=== PATIENT | female | born 1965 ===

== ENCOUNTER 2018-01-12 09:42 | Observation (INO) | payer OTHER ==
[2018-01-12] MEDS ORDERED: Aspirin 325 mg EC Tablets PO STA (10:08)
[2018-01-12 10:30] LABS: BASO # 0.1 K/uL (0.0-0.2); BASO % 0.8 % (0.0-2.0); EOS # 0.1 K/uL (0.0-0.7); EOS % 1.2 % (0.0-4.0); HEMOGLOBIN 14.8 g/dL (11.0-16.0); LYMPH # 1.8 K/uL (1.0-4.3); LYMPH % 19.4 % (20.0-40.0); MEAN CORPUSCULAR HEMOGLOBIN 30.9 pg (27.0-31.0); MEAN CORPUSCULAR HGB CONC 34.7 g/dL (33.0-37.0); MEAN PLATELET VOLUME 8.1 fL (7.2-11.7); MONO # 0.7 K/uL (0.0-0.8); MONO % 7.6 % (0.0-10.0); NEUT # 6.5 K/uL (1.8-7.0); NRBC % 0.1 % (0.0-2.0); RBC 4.79 Mil/uL (3.80-5.20); RED CELL DISTRIBUTION WIDTH 13.3 % (11.5-14.5); WHITE BLOOD COUNT 9.1 K/uL (4.8-10.8)
[2018-01-12 10:44] LABS: ALB/GLOB RATIO 1.1 (1.0-2.1); ALBUMIN 4.6 g/dL (3.5-5.0); CALCIUM 9.6 mg/dl (8.6-10.4); GFR AFRICAN-AMERICAN > 60; GFR NON-AFRICAN AMERICAN > 60
[2018-01-12 10:55] LABS: ALT/SGPT 20 U/L (9-52); AST/SGOT 34 U/L (14-36); BLOOD UREA NITROGEN 16 mg/dL (7-17)
--- NOTE | 2018-01-12 11:01 | C.PDOC ---
History Of Present Illness 52 year old female, with PMHx of HTN, presents to ED for evaluation of intermittent chest pain for the past 3 weeks and progressive shortness of breath. Pt reports being seen by her staff scientist, Dr. Portillo, 2 days ago, had an echocardiogram done with abnormal results and was recommended to have stress test scheduled. Pt states her symptoms continue which prompted her to visit the ED today. Denies history of PE/DVT. Notes she quit smoking 20 years ago. Denies cough, fever, or other complaints at this time. Time Seen by Provider: 01/12/18 10:07 Chief Complaint (Nursing): Chest Pain History Per: Patient History/Exam Limitations: no limitations Onset/Duration Of Symptoms: Days Current Symptoms Are (Timing): Still Present Quality: "Pain" Associated Symptoms: denies: Nausea, Diaphoresis, Syncope Modifying Factors: None Exacerbating Factors: None Alleviating Factors: None Recent travel outside of the [place]: No Additional History Per: Patient Past Medical History Reviewed: Historical Data, Nursing Documentation, Vital Signs Vital Signs: Last Vital Signs Temp 98.5 F 01/12/18 09:48 Pulse 63 01/12/18 10:31 Resp 18 01/12/18 09:48 BP 119/72 01/12/18 10:31 Pulse Ox 97 01/12/18 11:15 - Medical History PMH: HTN Family History: States: Unknown Family Hx - Social History Hx Alcohol Use: No Hx Substance Use: No - Immunization History Hx Tetanus Toxoid Vaccination: No Hx Influenza Vaccination: No Hx Pneumococcal Vaccination: No Review Of Systems Except As Marked, All Systems Reviewed And Found Negative. Constitutional: Negative for: Fever, Chills Cardiovascular: Positive for: Chest Pain. Negative for: Light Headedness Respiratory: Positive for: Shortness of Breath. Negative for: Cough Gastrointestinal: Negative for: Nausea, Vomiting Physical Exam - Physical Exam Appears: Non-toxic, No Acute Distress Skin: Normal Color, Warm, Dry Head: Atraumatic, Normacephalic Eye(s): bilateral: Normal Inspection Oral Mucosa: Moist Chest: Symmetrical Cardiovascular: Rhythm Regular, No Murmur Respiratory: Normal Breath Sounds, No Rales, No Rhonchi, No Wheezing Gastrointestinal/Abdominal: Soft, No Tenderness Extremity: Normal ROM, No Pedal Edema Neurological/Psych: Oriented x3, Normal Speech ED Course And Treatment - Laboratory Results Result Diagrams: 01/12/18 10:26 01/12/18 10:26 ECG: Interpreted By Me, Viewed By Me ECG Rhythm: Sinus Rhythm ECG Interpretation: No Acute Changes Interpretation Of ECG: Normal intervals, normal axis. No ST/T wave abnormality. Rate From EC (bpm) O2 Sat by Pulse Oximetry: 97 (RA) Pulse Ox Interpretation: Normal Medical Decision Making Medical Decision Making: Plan: EKG CXR Blood work Aspirin Case discussed with Dr. Ramirez who agrees upon telemetry admission for chest pain. Disposition Discussed With : Jefry Ramirez Doctor Will See Patient In The: Hospital Counseled Patient/Family Regarding: Studies Performed, Diagnosis - Disposition Disposition: HOSPITALIZED Disposition Time: 11:01 Condition: FAIR Forms: [facility] (Lux[employer]ger) - Clinical Impression Clinical Impression: Chest pain - Scribe Statement The provider has reviewed the documentation as recorded by the Scribe Lis Mishra All medical record entries made by the Scribe were at my direction and personally dictated by me. I have reviewed the chart and agree that the record accurately reflects my personal performance of the history, physical exam, medical decision making, and the department course for this patient. I have also personally directed, reviewed, and agree with the discharge instructions and disposition.
--- NOTE | 2018-01-12 11:14 | RAD ---
PROCEDURE: CHEST RADIOGRAPH, 1 VIEW HISTORY: SOB COMPARISON: D FINDINGS: LUNGS: No infiltrate. Linear scar/ atelectasis the right lung. PLEURA: No pneumothorax or pleural fluid seen. CARDIOVASCULAR: Normal. OSSEOUS STRUCTURES: No significant abnormalities. VISUALIZED UPPER ABDOMEN: Normal. OTHER FINDINGS: None. IMPRESSION: No active disease.
--- NOTE | 2018-01-12 12:56 | CP.PCM.CON ---
Addendum entered and electronically signed by Gage Jacobs DO 01/12/18 19:51: D-dimer negative Pulm consult, Dr. Murphy for persistent exertional dyspnea Original Note: <Gage Jacobs - Last Filed: 01/12/18 19:48> History of Present Illness - History of Present Illness History of Present Illness: PGY-[address] Martin's Cardiology service: Patient is a 52 year old female, with PMHx of HTN, panic attacks, depression, and PTSD, who presents to [facility] ED for chest pain. Patient first noticed pain 3-4 weeks ago while she was walking but dismissed it as "reflux or anxiety." She describes pain as "pressure like sensation in the middle of my chest that feels like someone is punching me." Pain "comes and goes" lasting "few seconds to few minutes." Over the past week chest pain has become more persistent and has become associated with progressively worsening shortness of breath, to the point where it was affecting her daily walking routine. Patient' s primary care doctor, Dr. Stevens, referred her to Dr. Olvera, a cook school cafeteria, who she saw on Monday. Patient had an echo done this week and said that the cook school cafeteria told her that her "heart was not pumping the way it should", and that this could be due to ischemia, so he scheduled her for a stress test. However, over the past 2 days, patient has been experiencing chest tightness with progressively worsening episodes of shortness of breath associated with diaphoresis, lightheadedness, and a warm sensation in her left arm. She also admits to 2 days of headache that has been intermittent and does not remit with Aleve. PMD: Rodney ([facility]) Supervisor Nutritional Yeast: Wade PMHx: HTN, panic attacks, PTSD, and claustrophobia Allergies: denies PSH: cervical fusion (2 years ago), gastroschisis as a FH: Sister with thyroid cancer, another sister with unspecified bone cancer, cervical cancer on the mothers side of the family SH: Former smoker (quit 4 years ago, 1/2 PPD for 30 years); denies alcohol and drug use Meds: Losartan 25 mg QD, Wellbutrin 150 mg BID, Buspirone 10 mg TID, Klonapin 0.5 mg HS Review of Systems - Constitutional Constitutional: absent: Chills, Fever - EENT Eyes: absent: Change in Vision Nose/Mouth/Throat: absent: Nasal Discharge - Cardiovascular Cardiovascular: Chest Pain, Dyspnea on Exertion. absent: Dyspnea, Palpitations - Gastrointestinal Gastrointestinal: absent: Abdominal Pain, Nausea, Vomiting - Genitourinary Genitourinary: absent: Dysuria - Musculoskeletal Musculoskeletal: absent: Numbness, Tingling - Integumentary Integumentary: absent: Wounds - Neurological Neurological: absent: Tingling, Weakness - Psychiatric Psychiatric: Anxiety Past Patient History - Past Social History Smoking Status: Never Smoked - CARDIAC Hx Hypertension: Yes - PSYCHIATRIC Hx Substance Use: No - SURGICAL HISTORY Hx Surgeries: Yes Other/Comment: Cervical fusion - ANESTHESIA Hx Anesthesia: Yes Hx Anesthesia Reactions: No Meds Allergies/Adverse Reactions: Allergies Allergy/AdvReac Type Severity Reaction Status Date / Time No Known Allergies Allergy Verified 01/12/18 09:45 Physical Exam - Additional Findings Additional findings: - Constitutional Appears: Non-toxic, No Acute Distress - Head Exam Head Exam: ATRAUMATIC, NORMAL INSPECTION, NORMOCEPHALIC - Eye Exam Eye Exam: EOMI, Normal appearance, PERRL Pupil Exam: NORMAL ACCOMODATION, PERRL - ENT Exam ENT Exam: Mucous Membranes Moist, Normal Exam - Neck Exam Neck exam: Positive for: Normal Inspection - Respiratory Exam Respiratory Exam: Clear to Auscultation Bilateral, NORMAL BREATHING PATTERN. absent: Accessory Muscle Use, Rales, Rhonchi, Wheezes, Respiratory Distress - Cardiovascular Exam Cardiovascular Exam: REGULAR RHYTHM, RRR, +S1, +S2. absent: Bradycardia, Tachycardia, Diastolic murmur, Gallop, Rubs, Systolic Murmur - No reproducibility of chest pain - GI/Abdominal Exam GI & Abdominal Exam: Normal Bowel Sounds, Soft. absent: Tenderness - Extremities Exam Extremities exam: Positive for: normal inspection. Negative for: calf tenderness, pedal edema - Back Exam Back exam: NORMAL INSPECTION - Neurological Exam Neurological exam: Alert, Oriented x3 - Psychiatric Exam Psychiatric exam: Normal Affect, Normal Mood - Skin Skin Exam: Dry, Intact, Normal Color, Warm Results - Vital Signs Recent Vital Signs: Last Vital Signs Temp 98.5 F 01/12/18 09:48 Pulse 52 L 01/12/18 12:44 Resp 18 01/12/18 12:44 BP 122/70 01/12/18 12:44 Pulse Ox 100 01/12/18 12:44 - Labs Result Diagrams: 01/12/18 10:26 01/12/18 10:26 Labs: Laboratory Results - last 24 hr 01/12/18 01/12/18 10:26 10:26 WBC 9.1 RBC 4.79 Hgb 14.8 Hct 42.6 MCV 89.0 MCH 30.9 MCHC 34.7 RDW 13.3 Plt Count 267 MPV 8.1 Neut % (Auto) 71.0 Lymph % (Auto) 19.4 L [place] % (Auto) 7.6 Eos % (Auto) 1.2 Baso % (Auto) 0.8 Neut # (Auto) 6.5 Lymph # (Auto) 1.8 [place] # (Auto) 0.7 Eos # (Auto) 0.1 Baso # (Auto) 0.1 Sodium 146 Potassium 4.1 Chloride 107 Carbon Dioxide 25 Anion Gap 19 BUN 16 Creatinine 0.8 Est GFR ( Amer) > 60 Est GFR (Non-Af Amer) > 60 Random Glucose 97 Calcium 9.6 Total Bilirubin 1.1 AST 34 ALT 20 Alkaline Phosphatase 104 Troponin I < 0.0120 NT-Pro-B Natriuret Pep 50.0 Total Protein 9.0 H Albumin 4.6 Globulin 4.3 H Albumin/Globulin Ratio 1.1 Assessment & Plan - Assessment and Plan (Free Text) Plan: Acute Chest Pain, R/O ACS Observe on tele LADONNA negative x 1; f/u Q6H x 2 EKG (01/12/18): NSR, 78 bpm, NML axis, No acute St/T wave changes; f/u Q6h x 2 CXR (01/12/18): NAD BNP 50 HARINI score: 1 pt (Positive criteria: > 2 episodes of angina in last 24 hrs) -5% risk at 14 days of: all-cause mortality, new or recurrent ME, or severe recurrent ischemia requiring urgent revascularization) ECHO (01/08/18): [faxed from Dr. Jimenez's office - copy placed on chart] LV function moderately depressed EF 45%, No wall motion abnormality. Mild MR. Mild pulmonic insufficiency. Mild globular LV dysfunction. ASA 325mg PO given in ED - ASA 81mg PO Daily Crestor 5mg PO HS Lovenox 70mg SC BID Losartan 25mg PO Daily f/u lipid panel, TSH/T4 f/u d-dimer Systolic CHF ECHO (01/08/18): [faxed from Dr. Jimenez's office - copy placed on chart] LV function moderately depressed EF 45%, No wall motion abnormality. Mild MR. Mild pulmonic insufficiency. Mild globular LV dysfunction. BNP 50 Losartan 25mg PO Daily HOLD BB as pt bradycardic HTN Well-controlled on admission Losartan 25mg PO Daily Gage Jacobs PGY-2 D/w Dr. Martin <Bhavesh Martin - Last Filed: 01/13/18 06:50> Meds - Medications Medications: Current Medications Aspirin (Ecotrin) 81 mg PO DAILY [facility] Bupropion HCl (Wellbutrin Sr 150 Mg) 150 mg PO BID [facility] Last Admin: 01/12/18 19:05 Dose: 150 mg Buspirone HCl (Buspar) 10 mg PO TID [facility] Last Admin: 01/12/18 19:05 Dose: 10 mg Clonazepam (Klonopin) 0.5 mg PO [facility] Last Admin: 01/12/18 21:18 Dose: 0.5 mg Enoxaparin Sodium (Lovenox) 70 mg SC BID [facility] Last Admin: 01/12/18 19:04 Dose: 70 mg Losartan Potassium (Cozaar) 25 mg PO DAILY [facility] Rosuvastatin Calcium (Crestor) 5 mg PO [facility] Last Admin: 01/12/18 21:17 Dose: 5 mg Results - Vital Signs Recent Vital Signs: Last Vital Signs Temp 97.6 F 01/12/18 23:48 Pulse 65 01/12/18 23:48 Resp 20 01/12/18 23:48 BP 109/67 01/12/18 23:48 Pulse Ox 97 01/12/18 23:48 - Labs Result Diagrams: 01/12/18 10:26 01/12/18 10:26 Labs: Laboratory Results - last 24 hr 01/12/18 01/12/18 01/12/18 10:26 10:26 14:32 WBC 9.1 RBC 4.79 Hgb 14.8 Hct 42.6 MCV 89.0 MCH 30.9 MCHC 34.7 RDW 13.3 Plt Count 267 MPV 8.1 Neut % (Auto) 71.0 Lymph % (Auto) 19.4 L [place] % (Auto) 7.6 Eos % (Auto) 1.2 Baso % (Auto) 0.8 Neut # (Auto) 6.5 Lymph # (Auto) 1.8 [place] # (Auto) 0.7 Eos # (Auto) 0.1 Baso # (Auto) 0.1 D-Dimer, Quantitative Sodium 146 Potassium 4.1 Chloride 107 Carbon Dioxide 25 Anion Gap 19 BUN 16 Creatinine 0.8 Est GFR ( Amer) > 60 Est GFR (Non-Af Amer) > 60 Random Glucose 97 Calcium 9.6 Total Bilirubin 1.1 AST 34 ALT 20 Alkaline Phosphatase 104 Total Creatine Kinase CK-MB (Mass) Troponin I < 0.0120 NT-Pro-B Natriuret Pep 50.0 Total Protein 9.0 H Albumin 4.6 Globulin 4.3 H Albumin/Globulin Ratio 1.1 Triglycerides 113 Cholesterol 180 LDL Cholesterol Direct 122 HDL Cholesterol 31 Thyroxine (T4) 9.59 TSH 3rd Generation 0.76 01/12/18 01/12/18 01/12/18 17:05 17:05 22:36 WBC RBC Hgb Hct MCV MCH MCHC RDW Plt Count MPV Neut % (Auto) Lymph % (Auto) [place] % (Auto) Eos % (Auto) Baso % (Auto) Neut # (Auto) Lymph # (Auto) [place] # (Auto) Eos # (Auto) Baso # (Auto) D-Dimer, Quantitative 237 Sodium Potassium Chloride Carbon Dioxide Anion Gap BUN Creatinine Est GFR ( Amer) Est GFR (Non-Af Amer) Random Glucose Calcium Total Bilirubin AST ALT Alkaline Phosphatase Total Creatine Kinase 60 65 CK-MB (Mass) 0.47 0.51 Troponin I < 0.0120 < 0.0120 NT-Pro-B Natriuret Pep Total Protein Albumin Globulin Albumin/Globulin Ratio Triglycerides Cholesterol LDL Cholesterol Direct HDL Cholesterol Thyroxine (T4) TSH 3rd Generation Assessment & Plan - Assessment and Plan (Free Text) Plan: Patient for stress test Monday
--- NOTE | 2018-01-12 13:25 | CP.PCM.HP ---
<MartirEleanor - Last Filed: 01/12/18 14:06> History of Present Illness - History of Present Illness History of Present Illness: HPI: Patient is a 52 year old female with a past medical history of recently diagnosed HTN, panic attacks, PTSD, and claustrophobia, who presents to the ED for chest pain and shortness of breath. Patient said she started having a pressure like pain intermittently about 3 weeks ago along with progressively worsening shortness of breath, to the point where it was affecting her daily walking routine. Patient's primary care doctor referred her to Dr. Olvera, a kier operator, who she saw on Monday. Patient had an echo done this week and said that the kier operator told her that her "heart was not pumping the way it should", and that this could be due to ischemia, so he scheduled her for a stress test. However, over the past 2 days, patient has been experiencing chest tightness with progressively worsening episodes of shortness of breath associated with diaphoresis, lightheadedness, and a warm sensation in her left arm. She also admits to 2 days of headache that has been intermittent and does not remit with Aleve. Yohannesn denies fever, chills, nasal congestion, cough, abdominal pain, N&V, diarrhea, constipation, dysuria, lower extremity pain/ swelling, sick contacts, and recent travel. Sba Underwriter: Wade PMH: recently diagnosed HTN, panic attacks, PTSD, and claustrophobia Meds: Losartan 25 mg QD, Wellbutrin 150 mg BID, Buspirone 10 mg TID, Klonapin 0.5 mg HS Allergies: denies PSH: cervica lfusion (2 years ago), gastroschesis as a FH: Sister with thyroid cancer, another sister with unspecified bone cancer, cervical cancer on the mothers side of the family SH: Former smoker (quit 4 years ago, 1/2 PPD for 30 years); denies alcohol and drug use Present on Admission - Present on Admission Any Indicators Present on Admission: No Review of Systems - Review of Systems All systems: reviewed and no additional remarkable complaints except (as per HPI ) Past Patient History - Past Social History Smoking Status: Never Smoked - CARDIAC Hx Hypertension: Yes - PSYCHIATRIC Hx Substance Use: No - SURGICAL HISTORY Hx Surgeries: Yes Other/Comment: Cervical fusion - ANESTHESIA Hx Anesthesia: Yes Hx Anesthesia Reactions: No Meds Allergies/Adverse Reactions: Allergies Allergy/AdvReac Type Severity Reaction Status Date / Time No Known Allergies Allergy Verified 01/12/18 09:45 Physical Exam - Constitutional Appears: Non-toxic, No Acute Distress - Head Exam Head Exam: ATRAUMATIC, NORMAL INSPECTION, NORMOCEPHALIC - Eye Exam Eye Exam: EOMI, Normal appearance, PERRL Pupil Exam: NORMAL ACCOMODATION, PERRL - ENT Exam ENT Exam: Mucous Membranes Moist, Normal Exam - Neck Exam Neck exam: Positive for: Normal Inspection - Respiratory Exam Respiratory Exam: Clear to Auscultation Bilateral, NORMAL BREATHING PATTERN. absent: Accessory Muscle Use, Rales, Rhonchi, Wheezes, Respiratory Distress - Cardiovascular Exam Cardiovascular Exam: REGULAR RHYTHM, RRR, +S1, +S2. absent: Bradycardia, Tachycardia, Diastolic murmur, Gallop, Rubs, Systolic Murmur - GI/Abdominal Exam GI & Abdominal Exam: Normal Bowel Sounds, Soft. absent: Tenderness - Extremities Exam Extremities exam: Positive for: normal inspection. Negative for: calf tenderness, pedal edema - Back Exam Back exam: NORMAL INSPECTION - Neurological Exam Neurological exam: Alert, Oriented x3 - Psychiatric Exam Psychiatric exam: Normal Affect, Normal Mood - Skin Skin Exam: Dry, Intact, Normal Color, Warm Results - Vital Signs Recent Vital Signs: Last Vital Signs Temp 98.5 F 01/12/18 09:48 Pulse 52 L 01/12/18 12:44 Resp 18 01/12/18 12:44 BP 122/70 01/12/18 12:44 Pulse Ox 100 01/12/18 12:44 - Labs Result Diagrams: 01/12/18 10:26 01/12/18 10:26 Labs: Laboratory Results - last 24 hr 01/12/18 01/12/18 10:26 10:26 WBC 9.1 RBC 4.79 Hgb 14.8 Hct 42.6 MCV 89.0 MCH 30.9 MCHC 34.7 RDW 13.3 Plt Count 267 MPV 8.1 Neut % (Auto) 71.0 Lymph % (Auto) 19.4 L [place] % (Auto) 7.6 Eos % (Auto) 1.2 Baso % (Auto) 0.8 Neut # (Auto) 6.5 Lymph # (Auto) 1.8 [place] # (Auto) 0.7 Eos # (Auto) 0.1 Baso # (Auto) 0.1 Sodium 146 Potassium 4.1 Chloride 107 Carbon Dioxide 25 Anion Gap 19 BUN 16 Creatinine 0.8 Est GFR ( Amer) > 60 Est GFR (Non-Af Amer) > 60 Random Glucose 97 Calcium 9.6 Total Bilirubin 1.1 AST 34 ALT 20 Alkaline Phosphatase 104 Troponin I < 0.0120 NT-Pro-B Natriuret Pep 50.0 Total Protein 9.0 H Albumin 4.6 Globulin 4.3 H Albumin/Globulin Ratio 1.1 Assessment & Plan - Assessment and Plan (Free Text) Plan: Chest pain * Given ASA 325 mg in the ED - will start ASA 81 mg QD * Dr. Martin consulted - help appreciated * May need stress test * First LADONNA and ECG negative * f/u trend * f/u lipid panel * f/u TSH/T4 * Lovenox 70 mg SC BID started per Dr. Ramirez HTN * Continue Losartan 25 mg QD History of Panic disorder, PTSD, and Claustrophobia * Continue home meds: Wellbutrin, Buspirone, and Klonopin Prophylaxis * DVT: SCDs and lovenox * GI: not indicated <Jefry Ramirez - Last Filed: 01/12/18 14:20> Results - Vital Signs Recent Vital Signs: Last Vital Signs Temp 98.5 F 01/12/18 09:48 Pulse 52 L 01/12/18 12:44 Resp 18 01/12/18 12:44 BP 122/70 01/12/18 12:44 Pulse Ox 100 01/12/18 12:44 - Labs Result Diagrams: 01/12/18 10:26 01/12/18 10:26 Labs: Laboratory Results - last 24 hr 01/12/18 01/12/18 10:26 10:26 WBC 9.1 RBC 4.79 Hgb 14.8 Hct 42.6 MCV 89.0 MCH 30.9 MCHC 34.7 RDW 13.3 Plt Count 267 MPV 8.1 Neut % (Auto) 71.0 Lymph % (Auto) 19.4 L [place] % (Auto) 7.6 Eos % (Auto) 1.2 Baso % (Auto) 0.8 Neut # (Auto) 6.5 Lymph # (Auto) 1.8 [place] # (Auto) 0.7 Eos # (Auto) 0.1 Baso # (Auto) 0.1 Sodium 146 Potassium 4.1 Chloride 107 Carbon Dioxide 25 Anion Gap 19 BUN 16 Creatinine 0.8 Est GFR ( Amer) > 60 Est GFR (Non-Af Amer) > 60 Random Glucose 97 Calcium 9.6 Total Bilirubin 1.1 AST 34 ALT 20 Alkaline Phosphatase 104 Troponin I < 0.0120 NT-Pro-B Natriuret Pep 50.0 Total Protein 9.0 H Albumin 4.6 Globulin 4.3 H Albumin/Globulin Ratio 1.1 Attending/Attestation - Attestation I have personally seen and examined this patient.: Yes I have fully participated in the care of the patient.: Yes I have reviewed all pertinent clinical information: Yes Notes (Text): 01/12/18 14:20 Medical attending: Patient was seen and examined by me, agrees the above note by medical assisting program director. We saw the patient together ER. 2. When we saw her she is not in acute distress. She was not actively having chest pain. The patient explains to us that she was recently seen by her outpatient kier operator who has advised her to have a stress test in the near future. However she was having chest pain for the past several days she described as a pressure-like sensation prompting her to come to the emergency room. The patient explains is that she's not sure sometimes if the pressure-like sensations were due to her anxiety or perhaps heart problems She does not smoke, she has a history of hypertension as well as anxiety attacks. The first cardiac enzyme was negative, the patient was normal sinus rhythm on the telemetry Review check additional cardiac enzymes overnight. Lovenox subcutaneous twice a day for the time being The chest x-ray was stable as well. While she is here we'll try to get a cardiology evaluation. thank you Jefry Ramirez
[2018-01-12] MEDS ORDERED: Enoxaparin 80 mg Syringe ONE (14:24)
[2018-01-12] MEDS: Enoxaparin 80 mg Syringe SC SCH ×2 (14:45→19:04)
[2018-01-12 15:24] LABS: T4 9.59 ug/dL (5.5-11.0)
[2018-01-12 17:38] LABS: CK-MB 0.47 ng/mL (0.0-3.38)
[2018-01-12] MEDS: buPROPion SR 150 MG TABLET PO SCH (19:05)
[2018-01-12 23:12] LABS: CK-MB 0.51 ng/mL (0.0-3.38)
[2018-01-13 01:19] VITALS: O2SAT 97
[2018-01-13 08:17] VITALS: PULSE 83
[2018-01-13 08:17] LABS: BASO # 0.1 K/uL (0.0-0.2); BASO % 0.7 % (0.0-2.0); EOS # 0.1 K/uL (0.0-0.7); EOS % 1.8 % (0.0-4.0); LYMPH # 1.7 K/uL (1.0-4.3); LYMPH % 19.9 % (20.0-40.0); MEAN CELL VOLUME 89.3 fL (81.0-99.0); MEAN CORPUSCULAR HEMOGLOBIN 30.8 pg (27.0-31.0); MEAN CORPUSCULAR HGB CONC 34.5 g/dL (33.0-37.0); MEAN PLATELET VOLUME 8.5 fL (7.2-11.7); MONO # 0.6 K/uL (0.0-0.8); MONO % 7.3 % (0.0-10.0); NEUT # 5.9 K/uL (1.8-7.0); NEUT % 70.3 % (50.0-75.0); NRBC % 0.2 % (0.0-2.0); RBC 4.55 Mil/uL (3.80-5.20); RED CELL DISTRIBUTION WIDTH 13.1 % (11.5-14.5); WHITE BLOOD COUNT 8.4 K/uL (4.8-10.8)
[2018-01-13 08:30] LABS: BLOOD UREA NITROGEN 16 mg/dL (7-17); CALCIUM 9.2 mg/dl (8.6-10.4); GFR AFRICAN-AMERICAN > 60; GFR NON-AFRICAN AMERICAN > 60
[2018-01-13 08:44] VITALS: BP 118/76; RESP 18; TEMP 98
--- NOTE | 2018-01-13 09:22 | CP.PCM.PN ---
Subjective - Date & Time of Evaluation Date of Evaluation: 01/13/18 Time of Evaluation: 09:00 - Subjective Subjective: Patient explains she did ok overnight. She no longer has the sensation in her left arm Cardiac enzymes negative, the repeat EKGs looked ok besides being low voltages The telemetry overnight was in the 60 to 70 range NSR, on exam I also walked her as well and the telemetry looked ok. Patient is pending stress test this Monday. Objective - Vital Signs/Intake and Output Vital Signs (last 24 hours): Temp Pulse Resp BP Pulse Ox 98.0 F 83 18 118/76 97 01/13/18 07:30 01/13/18 07:45 01/13/18 07:30 01/13/18 07:30 01/13/18 07:30 Intake and Output: 01/13/18 01/13/18 06:59 18:59 Intake Total 800 Balance 800 - Medications Medications: Current Medications Aspirin (Ecotrin) 81 mg PO DAILY [facility] Bupropion HCl (Wellbutrin Sr 150 Mg) 150 mg PO BID [facility] Last Admin: 01/12/18 19:05 Dose: 150 mg Buspirone HCl (Buspar) 10 mg PO TID [facility] Last Admin: 01/12/18 19:05 Dose: 10 mg Clonazepam (Klonopin) 0.5 mg PO [facility] Last Admin: 01/12/18 21:18 Dose: 0.5 mg Enoxaparin Sodium (Lovenox) 70 mg SC BID [facility] Last Admin: 01/12/18 19:04 Dose: 70 mg Losartan Potassium (Cozaar) 25 mg PO DAILY [facility] Rosuvastatin Calcium (Crestor) 5 mg PO [facility] Last Admin: 01/12/18 21:17 Dose: 5 mg - Labs Labs: 01/13/18 08:00 01/13/18 08:00 - Constitutional Appears: Well, Non-toxic, No Acute Distress - Head Exam Head Exam: NORMAL INSPECTION - Eye Exam Eye Exam: EOMI, Normal appearance - ENT Exam ENT Exam: Mucous Membranes Moist - Neck Exam Neck Exam: Normal Inspection - Respiratory Exam Respiratory Exam: Clear to Ausculation Bilateral, NORMAL BREATHING PATTERN - Cardiovascular Exam Cardiovascular Exam: REGULAR RHYTHM. absent: Murmur - GI/Abdominal Exam GI & Abdominal Exam: Soft, Normal Bowel Sounds - Neurological Exam Neurological Exam: Alert, Awake, CN II-XII Intact Neuro motor strength exam: Left Upper Extremity: 5, Right Upper Extremity: 5, Left Lower Extremity: 5, Right Lower Extremity: 5 - Psychiatric Exam Psychiatric exam: Normal Affect, Normal Mood - Skin Skin Exam: Dry, Warm Assessment and Plan - Assessment and Plan (Free Text) Assessment: Chest pain rule out OK 01/13/2018: Cardiac enzymes negative, the telemetry looked ok overnight and this morning. EKGs are ok besides consistently low voltage Pending stress test this Monday HTN 01/13/2018: BP have been stable, continue with Losartan. Maybe later should add on BB as well History of Panic disorder, PTSD, and Claustrophobia 01/13/2018: Continue home meds: Wellbutrin, Buspirone, and Klonopin Prophylaxis DVT: SCDs and lovenox
[2018-01-13] MEDS: buPROPion SR 150 MG TABLET PO SCH (09:45)
[2018-01-13] MEDS: Enoxaparin 80 mg Syringe SC SCH (09:59)
--- NOTE | 2018-01-13 13:56 | CP.PCM.DIS ---
<Jefry Lo - Last Filed: 01/13/18 18:01> Provider - Provider Date of Admission: 01/12/18 11:14 Attending physician: Jefry Ramirez DO Consults: Cardio- Dr. Martin Pulm- Dr. Murphy Time Spent in preparation of Discharge (in minutes): 32 Hospital Course - Lab Results Lab Results: Most Recent Lab Values WBC 8.4 K/uL (4.8-10.8) 01/13/18 08:00 RBC 4.55 Mil/uL (3.80-5.20) 01/13/18 08:00 Hgb 14.0 g/dL (11.0-16.0) 01/13/18 08:00 Hct 40.7 % (34.0-47.0) 01/13/18 08:00 MCV 89.3 fL (81.0-99.0) 01/13/18 08:00 MCH 30.8 pg (27.0-31.0) 01/13/18 08:00 MCHC 34.5 g/dL (33.0-37.0) 01/13/18 08:00 RDW 13.1 % (11.5-14.5) 01/13/18 08:00 Plt Count 250 K/uL (130-400) 01/13/18 08:00 MPV 8.5 fL (7.2-11.7) 01/13/18 08:00 Neut % (Auto) 70.3 % (50.0-75.0) 01/13/18 08:00 Lymph % (Auto) 19.9 % (20.0-40.0) L 01/13/18 08:00 [place] % (Auto) 7.3 % (0.0-10.0) 01/13/18 08:00 Eos % (Auto) 1.8 % (0.0-4.0) 01/13/18 08:00 Baso % (Auto) 0.7 % (0.0-2.0) 01/13/18 08:00 Neut # (Auto) 5.9 K/uL (1.8-7.0) 01/13/18 08:00 Lymph # (Auto) 1.7 K/uL (1.0-4.3) 01/13/18 08:00 [place] # (Auto) 0.6 K/uL (0.0-0.8) 01/13/18 08:00 Eos # (Auto) 0.1 K/uL (0.0-0.7) 01/13/18 08:00 Baso # (Auto) 0.1 K/uL (0.0-0.2) 01/13/18 08:00 D-Dimer, Quantitative 237 ng/mlDDU (0-243) 01/12/18 17:05 Sodium 146 mmol/L (132-148) 01/13/18 08:00 Potassium 4.3 mmol/L (3.6-5.2) 01/13/18 08:00 Chloride 107 mmol/L (98-107) 01/13/18 08:00 Carbon Dioxide 25 mmol/L (22-30) 01/13/18 08:00 Anion Gap 17 (10-20) 01/13/18 08:00 BUN 16 mg/dL (7-17) 01/13/18 08:00 Creatinine 0.8 mg/dL (0.7-1.2) 01/13/18 08:00 Est GFR ( Amer) > 60 01/13/18 08:00 Est GFR (Non-Af Amer) > 60 01/13/18 08:00 Random Glucose 84 mg/dL (65-105) 01/13/18 08:00 Calcium 9.2 mg/dl (8.6-10.4) 01/13/18 08:00 Total Bilirubin 1.1 mg/dL (0.2-1.3) 01/12/18 10:26 AST 34 U/L (14-36) 01/12/18 10:26 ALT 20 U/L (9-52) 01/12/18 10:26 Alkaline Phosphatase 104 U/L (38-126) 01/12/18 10:26 Total Creatine Kinase 65 U/L (30-135) 01/12/18 22:36 CK-MB (Mass) 0.51 ng/mL (0.0-3.38) 01/12/18 22:36 Troponin I < 0.0120 ng/mL (0.00-0.120) 01/12/18 22:36 NT-Pro-B Natriuret Pep 50.0 pg/mL (0-900) 01/12/18 10:26 Total Protein 9.0 g/dL (6.3-8.3) H 01/12/18 10:26 Albumin 4.6 g/dL (3.5-5.0) 01/12/18 10:26 Globulin 4.3 gm/dL (2.2-3.9) H 01/12/18 10:26 Albumin/Globulin Ratio 1.1 (1.0-2.1) 01/12/18 10:26 Triglycerides 113 mg/dL (0-149) 01/12/18 14:32 Cholesterol 180 mg/dL (0-199) 01/12/18 14:32 LDL Cholesterol Direct 122 mg/dL (0-129) 01/12/18 14:32 HDL Cholesterol 31 mg/dL (30-70) 01/12/18 14:32 Thyroxine (T4) 9.59 ug/dL (5.5-11.0) 01/12/18 14:32 TSH 3rd Generation 0.76 mIU/L (0.46-4.68) 01/12/18 14:32 - Hospital Course Hospital Course: Upon hospital admission: Patient is a 52 year old female with a past medical history of recently diagnosed HTN, panic attacks, PTSD, and claustrophobia, who presents to the ED for chest pain and shortness of breath. Patient said she started having a pressure like pain intermittently about 3 weeks ago along with progressively worsening shortness of breath, to the point where it was affecting her daily walking routine. Patient's primary care doctor referred her to Dr. Olvera, a spindraw operator, who she saw on Monday. Patient had an echo done this week and said that the spindraw operator told her that her "heart was not pumping the way it should", and that this could be due to ischemia, so he scheduled her for a stress test. However, over the past 2 days, patient has been experiencing chest tightness with progressively worsening episodes of shortness of breath associated with diaphoresis, lightheadedness, and a warm sensation in her left arm. She also admits to 2 days of headache that has been intermittent and does not remit with Aleve. Patietn denies fever, chills, nasal congestion, cough, abdominal pain, N&V, diarrhea, constipation, dysuria, lower extremity pain/swelling, sick contacts, and recent travel. 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 PMH: recently diagnosed HTN, panic attacks, PTSD, and claustrophobia Meds: Losartan 25 mg QD, Wellbutrin 150 mg BID, Buspirone 10 mg TID, Klonapin 0.5 mg HS Allergies: denies PSH: cervica lfusion (2 years ago), gastroschesis as a FH: Sister with thyroid cancer, another sister with unspecified bone cancer, cervical cancer on the mothers side of the family SH: Former smoker (quit 4 years ago, 1/2 PPD for 30 years); denies alcohol and drug use During hospital course, the patient was evaluated and treated for the following : (1) Chest pain rule out DC - Cardiac enzymes were negative x3, the telemetry remained normal during her hospital stay. Serial EKGs were normal at beside, but displayed low voltage. Chest xray was normal with no acute findings. (2) HTN - her BP remained stable during her hospitalization. She was continued on her home Losartan. (3) History of Panic disorder, PTSD, and Claustrophobia - her home medications were continued - Wellbutrin, Buspirone, and Klonopin. She admitted that she needs to have her medications adjusted as she has been feeling more anxious. She has an appointment with her Psychiatrist this Monday. The patient did well during this admission, responded well to treatment, and was deemed stable for discharge. Upon hospital discharge, the patient was provided with the following instructions: Patient is stable for discharge per Dr. Ramirez. Patient should resume all medications as outlined in this document. Additionally, patient should take the new medications listed below (scripts provided). 1. Please make an appointment and follow up with your Primary Doctor within one week of discharge. If patient does not have a Primary Doctor, please follow up with [facility] to establish medical care, at [phone]. 2. Please follow up with your spindraw operator, Dr. Jimenez, as an outpatient this Monday. Please call the office to make sure you have an appointment scheduled. Dr. Jimenez will schedule you for an outpatient Stress test to further evaluate your heart. Patient should return to ED immediately if symptoms return or worsen. Instructions discussed with patient who understood and agreed. Newly prescribed medications: ASA 81mg PO qD #30 This is a summary of the patient's hospital admission, see chart for comprehensive detail. - Date & Time of H&P Date of H&P: 01/12/18 Time of H&P: 13:25 Discharge Exam - Additional Findings Additional findings: - Constitutional Appears: Well, Non-toxic, No Acute Distress - Head Exam Head Exam: NORMAL INSPECTION - Eye Exam Eye Exam: EOMI, Normal appearance - ENT Exam ENT Exam: Mucous Membranes Moist - Neck Exam Neck Exam: Normal Inspection - Respiratory Exam Respiratory Exam: Clear to Ausculation Bilateral, NORMAL BREATHING PATTERN - Cardiovascular Exam Cardiovascular Exam: REGULAR RHYTHM, S1, S2. absent: Murmur - GI/Abdominal Exam GI & Abdominal Exam: Soft, Normal Bowel Sounds - Neurological Exam Neurological Exam: Alert, Awake, CN II-XII Intact Neuro motor strength exam: Left Upper Extremity: 5, Right Upper Extremity: 5, Left Lower Extremity: 5, Right Lower Extremity: 5 - Psychiatric Exam Psychiatric exam: Normal Affect, Normal Mood - Skin Skin Exam: Dry, Warm, Intact Discharge Plan - Discharge Medications Prescriptions: Aspirin [Ecotrin] 81 mg PO DAILY #30 tabec - Follow Up Plan Condition: FAIR Disposition: HOME/ ROUTINE Instructions: Chest Pain (DC) Additional Instructions: Patient is stable for discharge per Dr. Ramirez. Patient should resume all medications as outlined in this document. Additionally, patient should take the new medications listed below (scripts provided). 1. Please make an appointment and follow up with your Primary Doctor within one week of discharge. If patient does not have a Primary Doctor, please follow up with [facility] to establish medical care, at [phone]. 2. Please follow up with your spindraw operator, Dr. Jimenez, as an outpatient this Monday. Please call the office to make sure you have an appointment scheduled. Dr. Jimenez will schedule you for an outpatient Stress test to further evaluate your heart. Patient should return to ED immediately if symptoms return or worsen. Instructions discussed with patient who understood and agreed. Newly prescribed medications: ASA 81mg PO qD #30 <Jefry Ramirez - Last Filed: 01/14/18 07:21> Provider - Provider Date of Admission: 01/12/18 11:14 Attending physician: Jefry Ramirez, DO Hospital Course - Lab Results Lab Results: Most Recent Lab Values WBC 8.4 K/uL (4.8-10.8) 01/13/18 08:00 RBC 4.55 Mil/uL (3.80-5.20) 01/13/18 08:00 Hgb 14.0 g/dL (11.0-16.0) 01/13/18 08:00 Hct 40.7 % (34.0-47.0) 01/13/18 08:00 MCV 89.3 fL (81.0-99.0) 01/13/18 08:00 MCH 30.8 pg (27.0-31.0) 01/13/18 08:00 MCHC 34.5 g/dL (33.0-37.0) 01/13/18 08:00 RDW 13.1 % (11.5-14.5) 01/13/18 08:00 Plt Count 250 K/uL (130-400) 01/13/18 08:00 MPV 8.5 fL (7.2-11.7) 01/13/18 08:00 Neut % (Auto) 70.3 % (50.0-75.0) 01/13/18 08:00 Lymph % (Auto) 19.9 % (20.0-40.0) L 01/13/18 08:00 [place] % (Auto) 7.3 % (0.0-10.0) 01/13/18 08:00 Eos % (Auto) 1.8 % (0.0-4.0) 01/13/18 08:00 Baso % (Auto) 0.7 % (0.0-2.0) 01/13/18 08:00 Neut # (Auto) 5.9 K/uL (1.8-7.0) 01/13/18 08:00 Lymph # (Auto) 1.7 K/uL (1.0-4.3) 01/13/18 08:00 [place] # (Auto) 0.6 K/uL (0.0-0.8) 01/13/18 08:00 Eos # (Auto) 0.1 K/uL (0.0-0.7) 01/13/18 08:00 Baso # (Auto) 0.1 K/uL (0.0-0.2) 01/13/18 08:00 D-Dimer, Quantitative 237 ng/mlDDU (0-243) 01/12/18 17:05 Sodium 146 mmol/L (132-148) 01/13/18 08:00 Potassium 4.3 mmol/L (3.6-5.2) 01/13/18 08:00 Chloride 107 mmol/L (98-107) 01/13/18 08:00 Carbon Dioxide 25 mmol/L (22-30) 01/13/18 08:00 Anion Gap 17 (10-20) 01/13/18 08:00 BUN 16 mg/dL (7-17) 01/13/18 08:00 Creatinine 0.8 mg/dL (0.7-1.2) 01/13/18 08:00 Est GFR ( Amer) > 60 01/13/18 08:00 Est GFR (Non-Af Amer) > 60 01/13/18 08:00 Random Glucose 84 mg/dL (65-105) 01/13/18 08:00 Calcium 9.2 mg/dl (8.6-10.4) 01/13/18 08:00 Total Bilirubin 1.1 mg/dL (0.2-1.3) 01/12/18 10:26 AST 34 U/L (14-36) 01/12/18 10:26 ALT 20 U/L (9-52) 01/12/18 10:26 Alkaline Phosphatase 104 U/L (38-126) 01/12/18 10:26 Total Creatine Kinase 65 U/L (30-135) 01/12/18 22:36 CK-MB (Mass) 0.51 ng/mL (0.0-3.38) 01/12/18 22:36 Troponin I < 0.0120 ng/mL (0.00-0.120) 01/12/18 22:36 NT-Pro-B Natriuret Pep 50.0 pg/mL (0-900) 01/12/18 10:26 Total Protein 9.0 g/dL (6.3-8.3) H 01/12/18 10:26 Albumin 4.6 g/dL (3.5-5.0) 01/12/18 10:26 Globulin 4.3 gm/dL (2.2-3.9) H 01/12/18 10:26 Albumin/Globulin Ratio 1.1 (1.0-2.1) 01/12/18 10:26 Triglycerides 113 mg/dL (0-149) 01/12/18 14:32 Cholesterol 180 mg/dL (0-199) 01/12/18 14:32 LDL Cholesterol Direct 122 mg/dL (0-129) 01/12/18 14:32 HDL Cholesterol 31 mg/dL (30-70) 01/12/18 14:32 Thyroxine (T4) 9.59 ug/dL (5.5-11.0) 01/12/18 14:32 TSH 3rd Generation 0.76 mIU/L (0.46-4.68) 01/12/18 14:32 Attending/Attestation - Attestation I have personally seen and examined this patient.: Yes I have fully participated in the care of the patient.: Yes I have reviewed all pertinent clinical information, including history, physical exam and plan: Yes Notes (Text): 01/14/18 07:19 Medical attending: Patient was seen and examined by me earlier that morning. Agree with the above note by the resident Intially the plan was for a stress test this comming Monday on 01/15/2018 however cardiology here spoke with her outpatient spindraw operator and the patient will be discharged and then follow up for stress test on Monday. So she was discharged on the night of 01/13/2018 She was doing well when we saw her in that morning and I was able to also walk her on physical exam. She did not report chest pain or shortness of breath when walking. Denied palpitations thank you Jefry Ramirez
--- NOTE | 2018-01-13 23:05 | CP.PCM.CON ---
History of Present Illness - History of Present Illness History of Present Illness: Patient is a 52 year old female, with PMHx of HTN, panic attacks, depression, and PTSD, who presents to [facility] ED for chest pain. Patient first noticed pain 3-4 weeks ago while she was walking but dismissed it as "reflux or anxiety." She describes pain as "pressure like sensation in the middle of my chest that feels like someone is punching me." Pain "comes and goes" lasting "few seconds to few minutes." Over the past week chest pain has become more persistent and has become associated with progressively worsening shortness of breath, to the point where it was affecting her daily walking routine. Patient' s primary care doctor, Dr. Stevens, referred her to Dr. Olvera, a physical medicine specialist, who she saw on Monday. Patient had an echo done this week and said that the physical medicine specialist told her that her "heart was not pumping the way it should", and that this could be due to ischemia, so he scheduled her for a stress test. However, over the past 2 days, patient has been experiencing chest tightness with progressively worsening episodes of shortness of breath associated with diaphoresis, lightheadedness, and a warm sensation in her left arm. She also admits to 2 days of headache that has been intermittent and does not remit with Aleve. 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 Receiving: Wade PMHx: HTN, panic attacks, PTSD, and claustrophobia Allergies: denies PSH: cervical fusion (2 years ago), gastroschisis as a FH: Sister with thyroid cancer, another sister with unspecified bone cancer, cervical cancer on the mothers side of the family SH: Former smoker (quit 4 years ago, 1/2 PPD for 30 years); denies alcohol and drug use Meds: Losartan 25 mg QD, Wellbutrin 150 mg BID, Buspirone 10 mg TID, Klonapin 0.5 mg HS Review of Systems - Constitutional Constitutional: absent: Chills, Fever - EENT Eyes: absent: Change in Vision Nose/Mouth/Throat: absent: Nasal Discharge - Cardiovascular Cardiovascular: Chest Pain, Dyspnea on Exertion. absent: Dyspnea, Palpitations - Gastrointestinal Gastrointestinal: absent: Abdominal Pain, Nausea, Vomiting - Genitourinary Genitourinary: absent: Dysuria - Musculoskeletal Musculoskeletal: absent: Numbness, Tingling - Integumentary Integumentary: absent: Wounds - Neurological Neurological: absent: Tingling, Weakness - Psychiatric Psychiatric: Anxiety Physical Exam - Additional Findings Additional findings: - Constitutional Appears: Non-toxic, No Acute Distress - Head Exam Head Exam: ATRAUMATIC, NORMAL INSPECTION, NORMOCEPHALIC - Eye Exam Eye Exam: EOMI, Normal appearance, PERRL Pupil Exam: NORMAL ACCOMODATION, PERRL - ENT Exam ENT Exam: Mucous Membranes Moist, Normal Exam - Neck Exam Neck exam: Positive for: Normal Inspection - Respiratory Exam Respiratory Exam: Clear to Auscultation Bilateral, NORMAL BREATHING PATTERN. absent: Accessory Muscle Use, Rales, Rhonchi, Wheezes, Respiratory Distress - Cardiovascular Exam Cardiovascular Exam: REGULAR RHYTHM, RRR, +S1, +S2. absent: Bradycardia, Tachycardia, Diastolic murmur, Gallop, Rubs, Systolic Murmur - No reproducibility of chest pain - GI/Abdominal Exam GI & Abdominal Exam: Normal Bowel Sounds, Soft. absent: Tenderness - Extremities Exam Extremities exam: Positive for: normal inspection. Negative for: calf tenderness, pedal edema - Back Exam Back exam: NORMAL INSPECTION - Neurological Exam Neurological exam: Alert, Oriented x3 - Psychiatric Exam Psychiatric exam: Normal Affect, Normal Mood - Skin Skin Exam: Dry, Intact, Normal Color, Warm Past Patient History - Past Social History Smoking Status: Never Smoked - CARDIAC Hx Hypertension: Yes - PSYCHIATRIC Hx Substance Use: No - SURGICAL HISTORY Hx Surgeries: Yes Other/Comment: Cervical fusion - ANESTHESIA Hx Anesthesia: Yes Hx Anesthesia Reactions: No Meds Home Medications: Home Medication List Medication Instructions Recorded Confirmed Type Aspirin [Ecotrin] 81 mg PO DAILY #30 tabec 01/13/18 Rx Allergies/Adverse Reactions: Allergies Allergy/AdvReac Type Severity Reaction Status Date / Time No Known Allergies Allergy Verified 01/12/18 09:45 Results - Vital Signs Recent Vital Signs: Last Vital Signs Temp 98.0 F 01/13/18 07:30 Pulse 83 01/13/18 07:45 Resp 18 01/13/18 07:30 BP 118/76 01/13/18 07:30 Pulse Ox 97 01/13/18 07:30 - Labs Result Diagrams: 01/13/18 08:00 01/13/18 08:00 Labs: Laboratory Results - last 24 hr 01/12/18 01/13/18 01/13/18 22:36 08:00 08:00 WBC 8.4 RBC 4.55 Hgb 14.0 Hct 40.7 MCV 89.3 MCH 30.8 MCHC 34.5 RDW 13.1 Plt Count 250 MPV 8.5 Neut % (Auto) 70.3 Lymph % (Auto) 19.9 L [place] % (Auto) 7.3 Eos % (Auto) 1.8 Baso % (Auto) 0.7 Neut # (Auto) 5.9 Lymph # (Auto) 1.7 [place] # (Auto) 0.6 Eos # (Auto) 0.1 Baso # (Auto) 0.1 Sodium 146 Potassium 4.3 Chloride 107 Carbon Dioxide 25 Anion Gap 17 BUN 16 Creatinine 0.8 Est GFR ( Amer) > 60 Est GFR (Non-Af Amer) > 60 Random Glucose 84 Calcium 9.2 CK-MB (Mass) 0.51 Troponin I < 0.0120 Assessment & Plan - Assessment and Plan (Free Text) Assessment: Chest pain rule out GA 01/13/2018: Cardiac enzymes negative, the telemetry looked ok overnight and this morning. EKGs are ok besides consistently low voltage HTN 01/13/2018: BP have been stable, continue with Losartan. Maybe later should add on BB as well History of Panic disorder, PTSD, and Claustrophobia 01/13/2018: Continue home meds: Wellbutrin, Buspirone, and Klonopin Prophylaxis DVT: SCDs and lovenox Patient would like to go home to follow up with Dr. Jimenez for Monday stress test Patient cleared for discharge Advised to avoid strenuous activity till stress test done and results are available
--- NOTE | 2018-01-15 12:24 | CARD ---
APPROVED REPORT EKG Measurement Heart [id number] <Conclusion> Sinus bradycardia Otherwise normal ECG
--- NOTE | 2018-01-15 16:07 | CARD ---
APPROVED REPORT EKG Measurement Heart [id number] <Conclusion> Sinus bradycardia Nonspecific ST abnormality Abnormal ECG
--- NOTE | 2018-01-15 16:07 | CARD ---
APPROVED REPORT EKG Measurement Heart [id number] [place] [id number] <Conclusion> Normal sinus rhythm Normal ECG
== END 2018-01-13 14:44 | disposition home or self-care (01) ==
LOC: C.ER 09:42 → C.9E 11:14 → C.5S 15:02
PROVIDERS: ADMIT Hospitalist; ATTEND Hospitalist
DX: R07.9 Chest pain, unspecified (principal); Z87.891 Personal history of nicotine dependence; F43.10 Post-traumatic stress disorder, unspecified; F41.0 Panic disorder [episodic paroxysmal anxiety]; F40.240 Claustrophobia; R06.02 Shortness of breath; F32.9 Major depressive disorder, single episode, unspecified; I11.0 Hypertensive heart disease with heart failure; I50.20 Unspecified systolic (congestive) heart failure; R00.1 Bradycardia, unspecified; F41.9 Anxiety disorder, unspecified
CPT/HCPCS: 36415; 71045; 80048; 80053; 80061; 83880; 84436; 84443; 84484; 85025; 85378; 96372; 99284; G0378; J1650

== ENCOUNTER 2018-09-27 19:42 | Emergency (ER) | payer OTHER ==
[2018-09-27 20:32] LABS: SQUAMOUS EPITHIAL 2 /hpf (0-5); URINE BILIRUBIN NEGATIVE (NEGATIVE); URINE BLOOD NEGATIVE (NEGATIVE); URINE CLARITY Clear (Clear); URINE COLOR Yellow (YELLOW); URINE GLUCOSE (UA) NORMAL (Normal); URINE LEUKOCYTE ESTERASE 1+ Leu/uL (Negative); URINE PROTEIN NEGATIVE (NEGATIVE)
[2018-09-27 20:37] LABS: HCG,QUALITATIVE URINE NEGATIVE (NEGATIVE)
[2018-09-27 20:51] LABS: BASO # 0.1 K/uL (0.0-0.2); BASO % 0.5 % (0.0-2.0); EOS # 0.3 K/uL (0.0-0.7); EOS % 1.6 % (0.0-4.0); HEMOGLOBIN 15.3 g/dL (11.0-16.0); LYMPH # 2.9 K/uL (1.0-4.3); LYMPH % 18.3 % (20.0-40.0); MEAN CELL VOLUME 89.7 fL (81.0-99.0); MEAN CORPUSCULAR HEMOGLOBIN 29.9 pg (27.0-31.0); MEAN CORPUSCULAR HGB CONC 33.3 g/dL (33.0-37.0); MEAN PLATELET VOLUME 8.2 fL (7.2-11.7); MONO # 1.2 K/uL (0.0-0.8); MONO % 7.4 % (0.0-10.0); NEUT # 11.6 K/uL (1.8-7.0); NEUT % 72.2 % (50.0-75.0); RBC 5.11 Mil/uL (3.80-5.20); RED CELL DISTRIBUTION WIDTH 12.8 % (11.5-14.5)
--- NOTE | 2018-09-27 21:08 | C.PDOC ---
History Of Present Illness Patient presents to the ER with a complaint of abdominal pain, nausea, and vomiting that began around 1430 today. Patient has a Hx of gastritis and small bowel obstruction. She has had episodes of emesis while in the ER. Denies fever or chills. Time Seen by Provider: 09/27/18 20:59 Chief Complaint (Nursing): Abdominal Pain History Per: Patient History/Exam Limitations: no limitations Onset/Duration Of Symptoms: Hrs Current Symptoms Are (Timing): Still Present Severity: Moderate Pain Scale Rating Of: 6 Location Of Pain/Discomfort: Diffuse Quality Of Discomfort: Unable To Describe Associated Symptoms: denies: Nausea, Vomiting Exacerbating Factors: None Alleviating Factors: None Recent travel outside of the [place]: No Abnormal Vaginal Bleeding: No Past Medical History Reviewed: Historical Data, Nursing Documentation, Vital Signs Vital Signs: Last Vital Signs Temp 97.8 F 09/27/18 19:46 Pulse 116 H 09/27/18 19:46 Resp 20 09/27/18 19:46 BP 143/70 09/27/18 19:46 Pulse Ox 97 09/27/18 19:46 - Medical History PMH: HTN, Post Traumatic Stress Disorder Family History: States: Unknown Family Hx - Social History Hx Alcohol Use: No Hx Substance Use: No - Immunization History Hx Tetanus Toxoid Vaccination: Yes Hx Influenza Vaccination: Yes Hx Pneumococcal Vaccination: Yes Review Of Systems Constitutional: Negative for: Fever, Chills Cardiovascular: Negative for: Chest Pain, Palpitations Respiratory: Negative for: Cough, Shortness of Breath Gastrointestinal: Positive for: Nausea, Vomiting, Abdominal Pain Neurological: Negative for: Weakness, Numbness Physical Exam - Physical Exam Appears: Non-toxic Skin: Warm, Dry Head: Normacephalic Oral Mucosa: Moist Neck: Trachea Midline, Supple Chest: Symmetrical, No Tenderness Cardiovascular: Rhythm Regular Respiratory: No Rales, No Rhonchi, No Wheezing Gastrointestinal/Abdominal: Soft, Tenderness (Diffusely), No Guarding, No Rebound Neurological/Psych: Oriented x3 ED Course And Treatment - Laboratory Results Result Diagrams: 09/27/18 20:33 09/27/18 20:33 Lab Results: Urine Color Yellow (YELLOW) 09/27/18 20:09 Urine Clarity Clear (Clear) 09/27/18 20:09 Urine pH 5.0 (5.0-8.0) 09/27/18 20:09 Ur Specific [place] 1.025 (1.003-1.030) 09/27/18 20:09 Urine Protein Negative mg/dL (NEGATIVE) 09/27/18 20:09 Urine Glucose (UA) Normal mg/dL (Normal) 09/27/18 20:09 Urine Ketones Negative mg/dL (NEGATIVE) 09/27/18 20:09 Urine Blood Negative (NEGATIVE) 09/27/18 20:09 Urine Nitrate Negative (NEGATIVE) 09/27/18 20:09 Urine Bilirubin Negative (NEGATIVE) 09/27/18 20:09 Urine Urobilinogen 2.0 mg/dL (0.2-1.0) H 09/27/18 20:09 Ur Leukocyte Esterase 1+ Derik/uL (Negative) H 09/27/18 20:09 Urine WBC (Auto) 4 /hpf (0-5) 09/27/18 20:09 Urine RBC (Auto) 1 /hpf (0-3) 09/27/18 20:09 Ur Squamous Epith Cells 2 /hpf (0-5) 09/27/18 20:09 Hyaline Casts 3-5 /lpf (0-2) H 09/27/18 20:09 Urine HCG, Qual Negative (NEGATIVE) 09/27/18 20:09 Urine HCG, Qual Negative (NEGATIVE) 09/27/18 20:09 O2 Sat by Pulse Oximetry: 97 (room air) Pulse Ox Interpretation: Normal Progress Note: CT abd/pel, blood work, and urinalysis ordered. IV fluids, morphine, protonix, toradol, zofran, zosyn, and flagyl administered. 11:07 PM pt feels better. SHe wants to try outpatient management first, and will reeturn if symptoms recur Reevaluation Time: 23:10 Reassessment Condition: Improved Medical Decision Making Medical Decision Making: Upon provider reevaluation patient is feeling better, is medically stable, and requires no further treatment in the ED at this time. Patient will be discharged home with Rx for flagyl, miralax . Counseling was provided and all questions were answered regarding diagnosis and need for follow up with the referred clinic. There is agreement to discharge plan. Return if symptoms persist or worsen. Disposition Counseled Patient/Family Regarding: Studies Performed, Diagnosis, Need For Followup, Rx Given - Disposition Referrals: [facility] [Outside] [facility] [Outside] Disposition: HOME/ ROUTINE Disposition Time: 20:00 Condition: FAIR Additional Instructions: Please return if symptoms recur Prescriptions: Metronidazole [Flagyl] 500 mg PO TID #21 tablet Ondansetron ODT [Zofran ODT] 1 odt PO BID PRN #6 odt PRN Reason: Nausea/Vomiting Polyethylene Glycol 3350 [Miralax] 17 gm PO DAILY #270 ml Instructions: Constipation, Adult (DC), Acute Abdomen (Belly Pain), Adult (DC) Forms: [employer] ([place]) - Clinical Impression Clinical Impression: Abdominal pain, Enteritis, Constipation - Scribe Statement The provider has reviewed the documentation as recorded by the Scribe Reynold Dodson All medical record entries made by the Hermanibcolin were at my direction and personally dictated by me. I have reviewed the chart and agree that the record accurately reflects my personal performance of the history, physical exam, medical decision making, and the department course for this patient. I have also personally directed, reviewed, and agree with the discharge instructions and disposition.
[2018-09-27 21:10] LABS: BLOOD UREA NITROGEN 15 mg/dL (7-17); CALCIUM 9.9 mg/dl (8.6-10.4); GFR NON-AFRICAN AMERICAN > 60; LIPASE 122 U/L (23-300)
[2018-09-27 21:12] LABS: ALB/GLOB RATIO 1.2 (1.0-2.1); ALBUMIN 5.2 g/dL (3.5-5.0); ALT/SGPT 19 U/L (9-52); AST/SGOT 47 U/L (14-36)
[2018-09-27] MEDS ORDERED: Morphine 4 MG/ML VIAL ONE ×2 (21:21→22:39)
[2018-09-27] MEDS ORDERED: Azithromycin 500mg/250ML NS 500 MG/250 ML BAG IVPB ONE (21:28)
[2018-09-27] MEDS ORDERED: Sodium Chloride 0.9% 1,000 ML ONE (21:28)
[2018-09-27] MEDS ORDERED: Iohexol 300 100 ML IJ ONE (21:44)
[2018-09-27] MEDS: Sodium Chloride 0.9% 1,000 ML IV ONE (21:45)
[2018-09-27 22:14] LABS: INR 1.1; PROTHROMBIN TIME 11.8 SECONDS (9.7-12.2)
[2018-09-27] MEDS ORDERED: Piperacillin/Tazobact 3.375 gm 100 ML IVPB ONE (22:27)
[2018-09-27] MEDS ORDERED: metroNIDAZOLE IV 500 mg/100 ml 500 MG/100 ML BAG ONE (22:28)
[2018-09-27] MEDS: Piperacillin/Tazobact 3.375 GM in Sodium Chloride 100 ML IVPB STA (22:33)
[2018-09-27] MEDS: metroNIDAZOLE IV 500 mg/100 ml 500 MG/100 ML BAG IVPB SCH (23:05)
[2018-09-28 00:06] VITALS: BP 135/73; PULSE 70; RESP 16; TEMP 98.6; O2SAT 99
--- NOTE | 2018-09-28 13:09 | CT ---
Date of service: 09/27/2018 PROCEDURE: CT Abdomen and Pelvis with contrast HISTORY: abd pain, sbo COMPARISON: None. TECHNIQUE: Following the intravenous administration of iodinated contrast material, a CT examination of the abdomen and pelvis performed from the domes of the diaphragms to the symphysis pubis with reformatted datasets provided in axial, sagittal and coronal planes. Oral contrast was not administered as per referring physician request. Coronal and sagittal reformats were generated. Contrast dose: Omnipaque 300, 100 cc Radiation dose: Total exam DLP = 359.35 mGy-cm. This CT exam was performed using one or more of the following dose reduction techniques: Automated exposure control, adjustment of the mA and/or kV according to patient size, and/or use of iterative reconstruction technique. FINDINGS: LOWER THORAX: Unremarkable. LIVER: There is borderline intrahepatic dilatation centrally. No hepatic mass appreciable grossly. The liver is diffusely diminished in density appearing borderline enlarged. GALLBLADDER AND BILE DUCTS: Gallbladder appears distended but otherwise unremarkable. Normal caliber CBD. PANCREAS: Unremarkable. No gross lesion or ductal dilatation. SPLEEN: Unremarkable. ADRENALS: Unremarkable. No mass. KIDNEYS AND URETERS: Unremarkable. No hydronephrosis. No solid mass. VASCULATURE: Unremarkable. No aortic aneurysm. No aortic atherosclerotic calcification or mural plaque present. BOWEL: Prominent retained fecal material is seen throughout the colon suspicious for probable constipation. Variable dilatation of proximal to mid small bowel loops is appreciated potentially reflecting developing ileus. The stomach is distended with retained fluid as well. Distal small bowel loops appear collapsed. Early SBO is difficult to fully exclude. APPENDIX: Normal appendix. PERITONEUM: Trace cul-de-sac fluid identified. No ascites in the abdomen, upper or mid pelvis. No free air or mesenteric reaction appreciable. LYMPH NODES: Unremarkable. No enlarged lymph nodes. BLADDER: Unremarkable. REPRODUCTIVE: Unremarkable. BONES: No acute fracture. OTHER FINDINGS: None. IMPRESSION: 1. Although there is a questionable pattern constipation in the large bowel, distal small bowel appears collapsed with proximal and mid small bowel loops mildly distended with fluid partially distending the stomach. Consider potential ileus though very early SBO is not completely excluded. Clinical follow-up advised. The lack of oral contrast limits evaluation. 2. Hepatic steatosis. Borderline hepatomegaly. Borderline central intrahepatic biliary dilatation. No radiodense choledocholithiasis or radiodense cholelithiasis. Moderate gallbladder distension. Clinically correlate. Findings discussed with Dr. Santoro with written down and read back verification 09/28/2018 12:55 p.m.. Discordant from preliminary result from [facility] 09/27/2018 10:57 p.m. in terms of enteritis pattern versus potential bowel obstruction as well as the presence of hepatic steatosis.
== END 2018-09-28 00:07 | disposition home or self-care (01) ==
LOC: C.ER 19:42
DX: K52.9 Noninfective gastroenteritis and colitis, unspecified (principal); K59.00 Constipation, unspecified; R10.9 Unspecified abdominal pain; I10 Essential (primary) hypertension; F43.10 Post-traumatic stress disorder, unspecified
CPT/HCPCS: 74177; 80053; 81001; 83690; 84703; 85025; 85610; 85730; 96361; 96365; 96367; 96375; 96376; 99285; C9113; J1885; J2270; J2405; J2543; J2765; J7030; J7050; Q9967

== ENCOUNTER 2018-10-01 13:17 | Emergency (ER) | payer OTHER ==
[2018-10-01] MEDS ORDERED: Iohexol 240 (50 ml) PO STA (14:30)
[2018-10-01 15:04] LABS: BASO # 0.1 K/uL (0.0-0.2); BASO % 0.9 % (0.0-2.0); EOS # 0.2 K/uL (0.0-0.7); EOS % 2.4 % (0.0-4.0); HEMOGLOBIN 14.3 g/dL (11.0-16.0); LYMPH # 2.2 K/uL (1.0-4.3); LYMPH % 27.6 % (20.0-40.0); MEAN CELL VOLUME 90.3 fL (81.0-99.0); MEAN CORPUSCULAR HEMOGLOBIN 30.2 pg (27.0-31.0); MEAN CORPUSCULAR HGB CONC 33.4 g/dL (33.0-37.0); MEAN PLATELET VOLUME 8.2 fL (7.2-11.7); MONO # 0.5 K/uL (0.0-0.8); NEUT # 4.9 K/uL (1.8-7.0); NEUT % 62.1 % (50.0-75.0); RBC 4.73 Mil/uL (3.80-5.20); RED CELL DISTRIBUTION WIDTH 12.8 % (11.5-14.5)
[2018-10-01 15:05] LABS: WHITE BLOOD COUNT 7.9 K/uL (4.8-10.8)
[2018-10-01] MEDS ORDERED: Iohexol 240 (50 ml) ONE (15:11)
[2018-10-01 15:21] LABS: ALB/GLOB RATIO 1.3 (1.0-2.1); ALBUMIN 4.9 g/dL (3.5-5.0); ALT/SGPT 32 U/L (9-52); AST/SGOT 43 U/L (14-36); BLOOD UREA NITROGEN 10 mg/dL (7-17); CALCIUM 9.3 mg/dl (8.6-10.4); GFR NON-AFRICAN AMERICAN > 60; LIPASE 119 U/L (23-300)
--- NOTE | 2018-10-01 15:24 | C.PDOC ---
History Of Present Illness 53 y/o female, w/PMhx of abdominal surgeries and SBO, presents to the ER complaining of left sided abdominal pain. Patient has nausea and small bm's for the past few days. Patient vomited yesterday. She is able to tolerate small amou nts of food and water. She was evaluated for same symptoms in [facility] [place] ER on 09/27/18 and she had a CT Scan which showed constipation and enteritis. The CT Scan was revised to possible SBO. She was evaluated by her PMD yesterday and she was advised to go to the ER. Denies having fever, chills, and urinary symptoms. Time Seen by Provider: 10/01/18 13:50 Chief Complaint (Nursing): Abdominal Pain History Per: Patient History/Exam Limitations: no limitations Onset/Duration Of Symptoms: Days Current Symptoms Are (Timing): Still Present Severity: Moderate Past Medical History Reviewed: Historical Data, Nursing Documentation, Vital Signs Vital Signs: Last Vital Signs Temp 97.7 F 10/01/18 13:21 Pulse 66 10/01/18 13:21 Resp 16 10/01/18 13:21 BP 150/90 10/01/18 13:21 Pulse Ox 100 10/01/18 13:21 - Medical History PMH: HTN, Post Traumatic Stress Disorder Other Surgeries: Hx of surgeries Family History: States: No Known Family Hx - Social History Hx Alcohol Use: No Hx Substance Use: No - Immunization History Hx Tetanus Toxoid Vaccination: Yes Hx Influenza Vaccination: Yes Hx Pneumococcal Vaccination: Yes Review Of Systems Constitutional: Negative for: Fever, Chills Gastrointestinal: Positive for: Nausea, Vomiting, Abdominal Pain Genitourinary: Negative for: Dysuria, Hematuria Physical Exam - Physical Exam Appears: Non-toxic, No Acute Distress Skin: Normal Color, Warm, Dry Head: Atraumatic, Normacephalic Eye(s): bilateral: Normal Inspection Neck: Supple Chest: Symmetrical Cardiovascular: Rhythm Regular Respiratory: Normal Breath Sounds, No Rales, No Rhonchi, No Wheezing Gastrointestinal/Abdominal: Bowel Sounds (positive bowel sounds), Soft, Tenderness (left sided tenderness), No Guarding, Other (extensive T shaped scar) Neurological/Psych: Oriented x3, Normal Speech ED Course And Treatment - Laboratory Results Result Diagrams: 10/01/18 15:01 10/01/18 15:01 O2 Sat by Pulse Oximetry: 100 (RA) Pulse Ox Interpretation: Normal Medical Decision Making Medical Decision Making: Plan: --Labs --UA --CT- Abd & Pelv. --IV Fluids pt with constipation on ct scan with resolution of obstruction appearing finding s. pt given soap suds enema in ed and passed one some stool, with marked decrease in abdominal pain. on re-exam, pt with soft abdomen, non distended, minimal tenderness to left side abdomen. will d/c home with miralax, f/u pmd and gi/ pt has gi appt with ? Dr Caballero on Oct 15/ Disposition Counseled Patient/Family Regarding: Studies Performed, Diagnosis, Need For Followup, Rx Given - Disposition Referrals: Joe Stevens DO [Staff Provider] - Roseline Caballero [Staff Provider] - Disposition: HOME/ ROUTINE Disposition Time: 19:04 Condition: IMPROVED Additional Instructions: Drink increased fluids. Take miralax as prescribed. Drink prune juice. Can try glycerin rectal suppositories. Follow up with Darren Stevens and DEJUAN. Eat hi fiber food. Return to ER for any worsening symptoms or concerns. 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 - Scribe Statement The provider has reviewed the documentation as recorded by the Abdi Mooney Provider Attestation All medical record entries made by the Scribe were at my direction and personally dictated by me. I have reviewed the chart and agree that the record accurately reflects my personal performance of the history, physical exam, medical decision making, and the department course for this patient. I have also personally directed, reviewed, and agree with the discharge instructions and disposition.
[2018-10-01] MEDS ORDERED: Iohexol 300 100 ML IJ ONE (15:26)
[2018-10-01 15:37] LABS: SQUAMOUS EPITHIAL 3 /hpf (0-5); URINE BILIRUBIN NEGATIVE (NEGATIVE); URINE BLOOD NEGATIVE (NEGATIVE); URINE CLARITY Clear (Clear); URINE COLOR Yellow (YELLOW); URINE GLUCOSE (UA) NORMAL (Normal); URINE LEUKOCYTE ESTERASE TRACE Leu/uL (Negative); URINE PROTEIN NEGATIVE (NEGATIVE)
--- NOTE | 2018-10-01 17:07 | CT ---
Date of service: 10/01/2018 PROCEDURE: CT Abdomen and Pelvis with contrast HISTORY: abd pain, reportedly left lower quadrant pain. COMPARISON: Abdomen and pelvis CT with contrast 09/27/2018. TECHNIQUE: Contrast dose: Visipaque 320, 100 cc Radiation dose: Total exam DLP = 817.42 mGy-cm. This CT exam was performed using one or more of the following dose reduction techniques: Automated exposure control, adjustment of the mA and/or kV according to patient size, and/or use of iterative reconstruction technique. FINDINGS: LOWER THORAX: Linear atelectasis or fibrosis seen at the bilateral bases anteriorly. No mass, pleural or pericardial effusion identified. LIVER: Hepatic steatosis reiterated as well as mild central intrahepatic biliary dilatation with normal caliber CBD. Hepatic size remains upper limits of normal. GALLBLADDER AND BILE DUCTS: Gallbladder is further distended with sludge at the dependent portion or more likely, vicarious excretion of iodinated contrast material from prior CT. No mural thickening or pericholecystic fluid collection appreciated. PANCREAS: Pancreas remains normal appearing with no pancreatic duct dilatation identified or discrete mass evident. SPLEEN: Unremarkable. ADRENALS: Unremarkable. No mass. KIDNEYS AND URETERS: Unremarkable. No hydronephrosis. No solid mass. VASCULATURE: Unremarkable. No aortic aneurysm. No aortic atherosclerotic calcification or mural plaque present. BOWEL: Prior pattern of potential ileus or early small bowel obstruction appears to have resolved with the same bowel loops not decompressed and only partially distended with oral contrast material. Fecalization of the lumen of a few segments of small bowel in the periumbilical level of loops previously shown has also resolved. Prominent retained fecal material seen throughout the colon suggestive of constipation however. Is unclear whether this is the etiology of the patient's pain signature. No definitive stricture of colon is appreciated though the lumen of the small large-bowel is obscured by retained fecal material nevertheless. Duodenum is borderline thick-walled but is collapsed and not well evaluated. This is not in the patient's pain signature is well. Duodenitis is not favored here. APPENDIX: Not identified. Clinically correlate. PERITONEUM: Trace cul-de-sac fluid is identified with the remainder of the perineal space unremarkable. No free intraperitoneal gas collection identified. LYMPH NODES: Unremarkable. No enlarged lymph nodes. BLADDER: Unremarkable. REPRODUCTIVE: Unremarkable. BONES: No acute fracture. OTHER FINDINGS: None. IMPRESSION: 1. Prior early SBO/ileus pattern appears to have resolved. No bowel obstruction appreciated at this time oral contrast opacifying a large portion of the large bowel. 2. Constipation suggested based on persistent retention of retained fecal material throughout the colon. 3. Hepatic steatosis reiterated as well as upper limits normal size. 4. Duodenitis though this is not definite. Clinically correlate further. 5. Appendix not identified. No evidence to suggest appendicitis at the right lower quadrant abdomen. The cecum/ileocecal valve appears relatively ectopic at the right upper quadrant abdomen.
[2018-10-01 19:26] VITALS: BP 131/80; PULSE 64; RESP 18; TEMP 98; O2SAT 98
== END 2018-10-01 19:27 | disposition home or self-care (01) ==
LOC: C.ER 13:17
DX: K59.00 Constipation, unspecified (principal); R10.9 Unspecified abdominal pain
CPT/HCPCS: 74177; 80053; 81001; 81025; 83690; 85025; 96374; 99285; J2405; Q9966

== ENCOUNTER 2018-10-11 18:36 | Emergency (ER) | payer OTHER ==
[2018-10-11 18:43] VITALS: O2SAT 99
--- NOTE | 2018-10-11 18:50 | C.PDOC ---
History Of Present Illness PMhx of abdominal surgeries and SBO, presents to the ER complaining of RECUR left sided abdominal pain. Patient has nausea and small bm's for the past few days. 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 Patient vomited TODAY. She is able to tolerate small amounts of food and water. She was evaluated for same symptoms in [facility] ER on 09/27/18 and she had a CT Scan which showed constipation and enteritis. The CT Scan was revised to possible SBO. SP ENEMA IN ER 10/01 W IMPROVED SX. PS HAS BEEN ASYMPT UNTIL TODAY. HO Gastroschisis EXAM MILD DIST NONTOXIC ABD +MIDLINE SCAR, MILD DISTENTION SOFT +LUQ TEND NO R/G REMAINDER NEG Time Seen by Provider: 10/11/18 18:48 Chief Complaint (Nursing): Abdominal Pain History Per: Patient History/Exam Limitations: no limitations Current Symptoms Are (Timing): Still Present Location Of Pain/Discomfort: LUQ, LLQ Associated Symptoms: Nausea Abnormal Vaginal Bleeding: No Past Medical History Reviewed: Historical Data, Nursing Documentation, Vital Signs Vital Signs: Last Vital Signs Temp 96.9 F L 10/11/18 18:38 Pulse 70 10/11/18 18:38 Resp 20 10/11/18 18:38 BP 152/91 H 10/11/18 18:38 Pulse Ox 99 10/11/18 18:38 - Medical History PMH: HTN, Post Traumatic Stress Disorder Surgical History: No Surg Hx Family History: States: Unknown Family Hx - Social History Hx Alcohol Use: No Hx Substance Use: No - Immunization History Hx Tetanus Toxoid Vaccination: Yes Hx Influenza Vaccination: Yes Hx Pneumococcal Vaccination: Yes Review Of Systems Except As Marked, All Systems Reviewed And Found Negative. Gastrointestinal: Positive for: Nausea, Abdominal Pain (left sided) Physical Exam - Physical Exam Appears: Non-toxic, In Acute Distress (mild distress) Skin: Normal Color, Warm Head: Atraumatic, Normacephalic Eye(s): bilateral: Normal Inspection Neck: Normal ROM, Supple Cardiovascular: Rhythm Regular Respiratory: Normal Breath Sounds Gastrointestinal/Abdominal: Soft, Tenderness (left upper quardant), No Guarding, No Rebound, Other (midline scar) Back: Normal Inspection Extremity: Normal ROM, No Pedal Edema Neurological/Psych: Oriented x3 ED Course And Treatment - Laboratory Results Result Diagrams: 10/11/18 19:56 10/11/18 19:56 O2 Sat by Pulse Oximetry: 99 (RA) Pulse Ox Interpretation: Normal Progress - Re-Evaluation Re-evaluation Note: 10/11/18 23:32 [facility] REPORT +CONSTIPATION NO OBSTRUCT. PT NOW STATES PREV DX W IBS, ON UNK IBS MED BUT NO LONGER ON GI MEDS. PENDING GI EVAL NEXT WEEK. DC MG CITRATE, BENTYL, FU GI SCHEDULED - Data Reviewed Data Reviewed: Lab, Diagnostic imaging, Old records Disposition Counseled Patient/Family Regarding: Studies Performed, Diagnosis, Need For Followup, Rx Given - Disposition Referrals: YOUR,UI DESIGNER [Other] Disposition: HOME/ ROUTINE Disposition Time: 23:33 Condition: IMPROVED Prescriptions: Dicyclomine [Bentyl] 20 mg PO TID PRN #12 tab PRN Reason: Pain Magnesium Citrate [[facility] Magnesium Citrate] 300 ml PO ONCE #1 bottle Instructions: Constipation, Adult (DC) Forms: [facility] (Estonian), Work Excuse - Clinical Impression Clinical Impression: Colicky abdominal pain, Constipation - Scribe Statement The provider has reviewed the documentation as recorded by the Abdi Martin Provider Attestation: All medical record entries made by the Abdi were at my direction and personally dictated by me. I have reviewed the chart and agree that the record accurately reflects my personal performance of the history, physical exam, medical decision making, and the department course for this patient. I have also personally directed, reviewed, and agree with the discharge instructions and disposition.
[2018-10-11] MEDS ORDERED: Iohexol 240 (50 ml) PO STA (19:22)
[2018-10-11] MEDS ORDERED: Sodium Chloride 0.9% 1,000 ML IV ONE (19:22)
[2018-10-11] MEDS ORDERED: Sodium Chloride 0.9% 1,000 ML ONE (19:39)
[2018-10-11] MEDS ORDERED: Iohexol 240 (50 ml) ONE (19:39)
[2018-10-11 19:40] LABS: SQUAMOUS EPITHIAL 1 /hpf (0-5); URINE BACTERIA RARE (<OCC); URINE BILIRUBIN NEGATIVE (NEGATIVE); URINE BLOOD NEGATIVE (NEGATIVE); URINE CLARITY Clear (Clear); URINE COLOR Straw (YELLOW); URINE GLUCOSE (UA) NORMAL (Normal); URINE LEUKOCYTE ESTERASE NEG Leu/uL (Negative); URINE PROTEIN NEGATIVE (NEGATIVE); URINE UROBILINOGEN NORMAL mg/dL (0.2-1.0)
[2018-10-11 20:00] LABS: BASO # 0.1 K/uL (0.0-0.2); BASO % 0.6 % (0.0-2.0); EOS # 0.3 K/uL (0.0-0.7); EOS % 2.9 % (0.0-4.0); LYMPH # 2.3 K/uL (1.0-4.3); MEAN CELL VOLUME 89.6 fL (81.0-99.0); MEAN CORPUSCULAR HEMOGLOBIN 29.6 pg (27.0-31.0); MONO # 0.8 K/uL (0.0-0.8); MONO % 7.7 % (0.0-10.0); NEUT # 7.3 K/uL (1.8-7.0); NEUT % 67.8 % (50.0-75.0); RBC 4.72 Mil/uL (3.80-5.20); RED CELL DISTRIBUTION WIDTH 12.9 % (11.5-14.5); WHITE BLOOD COUNT 10.7 K/uL (4.8-10.8)
[2018-10-11 20:15] LABS: ALB/GLOB RATIO 1.3 (1.0-2.1); ALBUMIN 4.6 g/dL (3.5-5.0); ALT/SGPT 22 U/L (9-52); AST/SGOT 25 U/L (14-36); BLOOD UREA NITROGEN 10 mg/dL (7-17); CALCIUM 9.2 mg/dl (8.6-10.4); GFR NON-AFRICAN AMERICAN > 60; LIPASE 126 U/L (23-300)
[2018-10-11] MEDS ORDERED: Iohexol 300 100 ML IJ ONE (21:17)
[2018-10-11 23:31] VITALS: BP 142/85; PULSE 62; RESP 18; TEMP 97.7
--- NOTE | 2018-10-12 07:45 | CT ---
Date of service: 10/11/2018 PROCEDURE: CT Abdomen and Pelvis with contrast HISTORY: abd pain LUQ HO Gastroschisis RO OBSTRUCTION COMPARISON: Comparison is made to the previous study dated 10/01/2018 TECHNIQUE: Contrast dose: 100 mL of Omnipaque 300 intravenously. Axial and reformatted coronal and sagittal CT images of the abdomen and pelvis were obtained after IV and oral contrast administration. Radiation dose: Total exam DLP = 428.77 mGy-cm. This CT exam was performed using one or more of the following dose reduction techniques: Automated exposure control, adjustment of the mA and/or kV according to patient size, and/or use of iterative reconstruction technique. FINDINGS: LOWER THORAX: There is a linear opacity noted along the left fissure likely atelectasis or scar tissue was noted in the previous exam. No evidence of pleural effusion LIVER: The liver is mildly enlarged heterogeneous demonstrate mild diffuse low-attenuation. Again noted is Valery's lobe of the liver which is a normal variant. No evidence of discrete liver mass. The portal vein is patent. GALLBLADDER AND BILE DUCTS: No evidence of acute cholecystitis or biliary ductal obstruction. PANCREAS: Unremarkable. No gross lesion or ductal dilatation. SPLEEN: Unremarkable. ADRENALS: Unremarkable. No mass. KIDNEYS AND URETERS: Unremarkable. No hydronephrosis. No solid mass. VASCULATURE: Unremarkable. No aortic aneurysm. No aortic atherosclerotic calcification or mural plaque present. BOWEL: Gastric and small bowel wall thickening is noted suspicious for gastroenteritis. Mild constipation is also noted. No evidence of high-grade bowel obstruction. No evidence of gastric outlet obstruction. APPENDIX: No evidence of appendicitis. PERITONEUM: Unremarkable. No free fluid. No free air. LYMPH NODES: Unremarkable. No enlarged lymph nodes. Mildly enlarged right inguinal lymph node noted measures 2 centimeter. BLADDER: Unremarkable. REPRODUCTIVE: Unremarkable. BONES: No acute fracture. OTHER FINDINGS: None. IMPRESSION: No evidence of bowel or gastric outlet obstruction. Mild gastric and small bowel wall thickening suspicious for gastroenteritis. Mildly enlarged right inguinal lymph node noted measures 2 centimeter. Preliminary report contains concordant findings was submitted by [facility].
== END 2018-10-11 23:45 | disposition home or self-care (01) ==
LOC: C.ER 18:36
DX: R10.84 Generalized abdominal pain (principal); K59.00 Constipation, unspecified; I10 Essential (primary) hypertension; F43.10 Post-traumatic stress disorder, unspecified
CPT/HCPCS: 74177; 80053; 81001; 83690; 85025; 96374; 99284; J2270; J7030; Q9966; Q9967

== ENCOUNTER 2018-10-19 08:03 | Day surgery (SDC) | payer OTHER ==
[2018-10-19 08:40] VITALS: BMI 24.0
--- NOTE | 2018-10-19 09:24 | CP.SDSHP ---
Same Day Surgery H & P - History Proposed Procedure: EGD Pre-Op Diagnosis: SEE NOTES - Previous Medical/Surgical History Neuro: Other Misc: Other Pain: 4.Moderate Pain - Allergies Allergies: Allergies No Known Allergies Allergy (Verified 10/11/18 18:43) - Physical Exam General Appearance: N Vital Signs: Vital Signs 10/19/18 08:30 Temperature 98.2 F Pulse Rate 70 Respiratory 16 Rate Blood Pressure 136/81 Mental Status: Alert & Oriented x3 Neuro: WNL Heart: WNL Lungs: WNL GI: Other - {Optional Preform as Required} Breast: WNL Abdomen: Other Rectal: Other Integument: WNL : WNL Ortho: Other ENT: WNL - Impression Pt. Evaluated Today:Candidate for Anesthesia & Procedure: Yes - Date & Time Time: 09:24 Short Stay Discharge - Short Stay Discharge Admitting Diagnosis/Reason for Visit: FUNCTIONAL DYSPEPSIA Disposition: HOME/ ROUTINE Referrals: Joe Stevens DO [Primary Care Provider] -
[2018-10-19] MEDS ORDERED: Propofol 10 mg/ml Inj (20 ML) ONE (09:35)
[2018-10-19] MEDS ORDERED: Midazolam 2 MG/2 ML VIAL ONE (09:35)
[2018-10-19 09:54] VITALS: TEMP 97.6
[2018-10-19] MEDS ORDERED: Pantoprazole 40 mg EC Tab PO ONE (10:15)
[2018-10-19 10:55] VITALS: BP 110/67; PULSE 68; RESP 12; O2SAT 99
== END 2018-10-19 10:50 | disposition home or self-care (01) ==
LOC: C.ENDO 08:03
PROVIDERS: ATTEND Specialist
DX: K29.00 Acute gastritis without bleeding (principal); K29.50 Unspecified chronic gastritis without bleeding; K44.9 Diaphragmatic hernia without obstruction or gangrene; K31.89 Other diseases of stomach and duodenum; F43.10 Post-traumatic stress disorder, unspecified; F41.1 Generalized anxiety disorder; Z98.890 Other specified postprocedural states; Z98.1 Arthrodesis status; Z79.899 Other long term (current) drug therapy
CPT/HCPCS: 43239; 88305; J2250; J2704